=== PATIENT | female | born 1945 | race Caucasian/White ===

== ENCOUNTER 2018-10-23 17:51 | Emergency (ER) | payer OTHER ==
[~2018-10-23] VITALS: Ht 160 cm; Wt 59.0 kg
[~2018-10-23 17:51] MED LIST: AMLODIPINE BESY10 MG; ASPIRIN EC81 MG; COZAAR100 MG; FENOFIBRATE160 MG; GABAPENTIN400 MG; LEVOTHYROXINE150 MCG; VITAMIN D350000 UNIT
== END 2018-10-24 01:08 | disposition home or self-care (01) ==
LOC: ER 17:51
DX: R06.02 Shortness of breath (principal); M62.830 Muscle spasm of back

== ENCOUNTER 2022-06-14 16:17 | Inpatient (IN) | payer OTHER | END 2022-06-20 12:26 | disposition home or self-care (01) | DRG 392 | LOC: ER 16:17 → MEDI 21:56 | PROVIDERS: ADMIT Specialist | PROC: BW21ZZZ Computerized Tomography (CT Scan) of Abdomen and Pelvis (ICD-10-PCS; principal; 2022-06-14) | DX: K57.32 Diverticulitis of large intestine without perforation or abscess without bleeding (principal); R10.32 Left lower quadrant pain; K59.09 Other constipation; E87.6 Hypokalemia; E03.9 Hypothyroidism, unspecified; I11.9 Hypertensive heart disease without heart failure; Z20.822 Contact with and (suspected) exposure to COVID-19 ==